=== PATIENT | male | born 1980 | race American Indian/Alaskan Native ===

== ENCOUNTER 2019-01-05 15:14 | Inpatient (IN) | payer SELFPAY ==
--- NOTE | 2019-01-05 15:27 | Event Note ---
ED Screening Note Date of service: 01/05/19 Time: 15:25 ED Screening Note: This is a 38 y.o. M. that presents to the ER with weakness x 2 weeks. This initial assessment/diagnostic orders/clinical plan/treatment(s) is/are subject to change based on patients health status, clinical progression and re- assessment by fellow clinical providers in the ED. Further treatment and workup at subsequent clinical providers discretion. Patient/guardian urged not to elope from the ED as their condition may be serious if not clinically assessed and managed. Initial orders include: Labs Main ED
[2019-01-05 15:55] LABS: Basophils # (Auto) 0.1 K/mm3 (0.0-0.1); Basophils % (Auto) 0.6 % (0.0-1.8); Eosinophils # (Auto) 0.3 K/mm3 (0.0-0.4); Eosinophils % (Auto) 3.5 % (0.0-4.3); Hematocrit 46.1 % (35.5-45.6); Hemoglobin 15.5 gm/dl (11.8-15.2); Lymphocytes # (Auto) 2.4 K/mm3 (1.2-5.4); Lymphocytes % (Auto) 24.2 % (13.4-35.0); Mean Corpuscular HGB Conc 34 % (32-34); Mean Corpuscular Volume 86 fl (84-94); Monocytes # (Auto) 0.9 K/mm3 (0.0-0.8); Monocytes % (Auto) 9.4 % (0.0-7.3); Platelet Count 229 K/mm3 (140-440); Red Blood Count 5.39 M/mm3 (3.65-5.03); Red Cell Distribution Width 12.6 % (13.2-15.2)
[2019-01-05 16:13] LABS: Bilirubin,Urine NEG (Negative); Blood,Urine NEG (Negative); Color,Urine Colorless (Yellow); Protein,Urine <15 mg/dL mg/dL (Negative); Urobilinogen,Urine < 2.0 mg/dL (<2.0); WBC,Urine < 1.0 /HPF (0.0-6.0)
[2019-01-05 16:20] LABS: BUN/Creatinine Ratio 14; Blood Urea Nitrogen 22 mg/dL (9-20); Calcium 9.3 mg/dL (8.4-10.2); Hemolysis Index 51
[2019-01-05] MEDS ORDERED: NACL 0.9% 1000 ML 1,000 ML IV ONE (16:46)
--- NOTE | 2019-01-05 16:52 | Emergency Department Report ---
HPI - General Chief Complaint: Weakness Time Seen by Provider: 01/05/19 15:25 - HPI HPI: Room 4 The patient is a 38-year-old male presenting with chief complaint of polydipsia and polyuria. The patient states her past 2 weeks he's had a very dry mouth and fatigue. Patient admits to polydipsia and polyuria. Patient admits occasional nausea and vomiting Location: [See above] Duration: [See above] Quality: [See above] Severity: [See above] Modifying factors: [see above] Context: [see above] Mode of transportation: [not driving] ED Past Medical Hx - Past Medical History Previous Medical History?: No - Surgical History Past Surgical History?: No - Family History Family history: no significant - Social History Smoking Status: Current Every Day Smoker (1/2 pack per day) Substance Use Type: Marijuana ED Review of Systems ROS: Stated complaint: FATIGUE/DRY MOUTH Other details as noted in HPI Constitutional: malaise Eyes: denies: eye pain ENT: denies: throat pain Respiratory: no symptoms reported Cardiovascular: denies: chest pain Endocrine: increased thirst, increased urine Gastrointestinal: nausea, vomiting Genitourinary: denies: dysuria Musculoskeletal: denies: back pain Neurological: denies: headache Physical Exam - Physical Exam Vital Signs: Vital Signs 01/05/19 15:25 Temperature 98.1 F Pulse Rate 109 H Respiratory 20 Rate Blood Pressure 147/94 O2 Sat by Pulse 95 Oximetry Physical Exam: GENERAL: The patient is well-developed well-nourished male lying on stretcher not appearing to be in acute distress. [] HEENT: Normocephalic. Atraumatic. Extraocular motions are intact. NECK: Supple. No meningitic signs are noted. There is no adenopathy noted. CHEST/LUNGS: Clear to auscultation. There is no respiratory distress noted. HEART/CARDIOVASCULAR: Regular. There is no tachycardia. There is no gallop rub or murmur. ABDOMEN: Abdomen is soft, nontender. Patient has normal bowel sounds. There is no abdominal distention. SKIN: There is no rash. There is no edema. There is no diaphoresis. NEURO: The patient is awake, alert, and oriented. The patient is cooperative. The patient has normal speech MUSCULOSKELETAL: There is no evidence of acute injury. ED Course Vital Signs 01/05/19 15:25 Temperature 98.1 F Pulse Rate 109 H Respiratory 20 Rate Blood Pressure 147/94 O2 Sat by Pulse 95 Oximetry ED Medical Decision Making - Lab Data Result diagrams: 01/05/19 15:35 01/05/19 15:35 Laboratory Tests 01/05/19 01/05/19 01/05/19 15:30 15:32 15:35 WBC 9.8 RBC 5.39 H Hgb 15.5 H Hct 46.1 H MCV 86 MCH 29 MCHC 34 RDW 12.6 L Plt Count 229 Lymph % (Auto) 24.2 [place] % (Auto) 9.4 H Eos % (Auto) 3.5 Baso % (Auto) 0.6 Lymph # 2.4 [place] # 0.9 H Eos # 0.3 Baso # 0.1 Seg Neutrophils % 62.3 Seg Neutrophils # 6.1 VBG pH Sodium Potassium Chloride Carbon Dioxide Anion Gap BUN Creatinine Estimated GFR BUN/Creatinine Ratio Glucose POC Glucose > 500 H Calcium Magnesium Total Bilirubin AST ALT Alkaline Phosphatase Total Protein Albumin Albumin/Globulin Ratio Urine Color Colorless Urine Turbidity Clear Urine pH 6.0 Ur Specific [place] 1.029 Urine Protein <15 mg/dl Urine Glucose (UA) >=500 Urine Ketones 20 Urine Blood Neg Urine Nitrite Neg Urine Bilirubin Neg Urine Urobilinogen < 2.0 Ur Leukocyte Esterase Neg Urine WBC (Auto) < 1.0 Urine RBC (Auto) 1.0 01/05/19 01/05/19 01/05/19 15:35 15:35 17:00 WBC RBC Hgb Hct MCV MCH MCHC RDW Plt Count Lymph % (Auto) [place] % (Auto) Eos % (Auto) Baso % (Auto) Lymph # [place] # Eos # Baso # Seg Neutrophils % Seg Neutrophils # VBG pH 7.367 Sodium 122 L Potassium 5.0 Chloride 83.3 L Carbon Dioxide 22 Anion Gap 22 BUN 22 H Creatinine 1.6 H Estimated GFR 58 BUN/Creatinine Ratio 14 Glucose 777 H* POC Glucose Calcium 9.3 Magnesium 2.00 Total Bilirubin 0.30 AST 12 ALT < 5 L Alkaline Phosphatase 112 Total Protein 8.6 H Albumin 4.0 Albumin/Globulin Ratio 0.9 Urine Color Urine Turbidity Urine pH Ur Specific [place] Urine Protein Urine Glucose (UA) Urine Ketones Urine Blood Urine Nitrite Urine Bilirubin Urine Urobilinogen Ur Leukocyte Esterase Urine WBC (Auto) Urine RBC (Auto) - Differential Diagnosis new-onset diabetes, DKA Critical care attestation.: If time is entered above; I have spent that time in minutes in the direct care of this critically ill patient, excluding procedure time. ED Disposition Clinical Impression: Diabetic hyperosmolar non-ketotic state Disposition: OP ADMIT IP TO THIS HOSP Is pt being admited?: Yes Does the pt Need Aspirin: No Condition: Fair Instructions: Diabetes Mellitus Type 2 in Adults (ED) Referrals: [facility] [place] [facility] [Primary Care Provider] - 3-5 Days Time of Disposition: 17:22 (hospitalist notified (Dr Day))
[2019-01-05 16:55] LABS: Alanine Aminotransferase < 5 units/L (7-56)
[2019-01-05] MEDS ORDERED: D50W (25GM) Syringe IV PRN (17:13)
[2019-01-05] MEDS ORDERED: NACL 0.45% IV SCH (18:00)
[2019-01-05] MEDS ORDERED: HumuLIN R 100 UNITS in NACL 0.9% 99 ML IV SCH (18:00)
[2019-01-05] MEDS ORDERED: NACL 0.45% 1000 ML 1,000 ML IV ONE ×3 (18:19→20:46)
[2019-01-05 18:34] LABS: BUN/Creatinine Ratio 18; Blood Urea Nitrogen 22 mg/dL (9-20); Hemolysis Index 39
[2019-01-05] MEDS ORDERED: SODIUM CHLORIDE FLUSH SYRINGE 10 ML IV PRN (19:15)
--- NOTE | 2019-01-05 19:17 | History and Physical Report ---
History of Present Illness Chief complaint: I feel sick, im thirsty History of present illness: 38 YO Male with Obesity, Nicotine Dependence presents to ED for evaluation. Pt states that he has experienced generalized fatigue, dry mouth, polydipsia, polyuria, nausea and multiple episodes of vomiting over the past 2 weeks with increased frequency of the aforementioned symptoms over the past 3 days. Pt transported to [facility] via private vehicle. Pt seen and evaluated in ED and found to have new onset DM with Hyperglycemic Hyperosmolar State with serum glucose above 700 complicated by acidosis. Pt denies fever, chills, CP, Palpitations, Trauma, BRBPR, Productive cough, skin rash, ingestion of food/water from new/different sources. Pt admitted to [facility] and initiated on Insulin drip as well as IVF resuscitation with improvement in symptoms. No prior admission for review. No medication listed for reconciliation at time of admission. Past History Past Medical History: other (Obesity) Past Surgical History: No surgical history, Other (reviewed) Social history: , smoking Family history: diabetes, hypertension Medications and Allergies Allergies Allergy/AdvReac Type Severity Reaction Status Date / Time No Known Allergies Allergy Unverified 01/05/19 15:24 Active Meds: Active Medications Dextrose (D50w (25gm) Syringe) 0 ml IV ONCE PRN PRN Reason: Hypoglycemia Insulin Human Regular 100 (units/ Sodium Chloride) 100 mls @ 10 mls/hr IV TITR ITZ; Protocol Sodium Chloride (Nacl 0.45%) 4,000 mls @ 999 mls/hr IV DIRECT ITZ Last Admin: 01/05/19 18:22 Dose: 999 mls/hr Documented by: Sodium Chloride (Sodium Chloride Flush Syringe 10 Ml) 10 ml IV BID ITZ Sodium Chloride (Sodium Chloride Flush Syringe 10 Ml) 10 ml IV PRN PRN PRN Reason: LINE FLUSH Review of Systems Constitutional: no weight loss, no weight gain, no fever, no chills Ears, nose, mouth and throat: no ear pain, no ear discharge, no tinnitis, no decreased hearing, no nose pain, no nasal discharge Cardiovascular: no chest pain, no orthopnea, no palpitations, no rapid/irregular heart beat, no lightheadedness Respiratory: no cough, no cough with sputum, no excessive sputum, no hemoptysis, no shortness of breath Gastrointestinal: nausea, vomiting, no abdominal pain, no change in bowel habits, no hematemesis, no coffee ground emesis Genitourinary Male: no dysuria, no hematuria, no flank pain, no discharge, no urinary frequency, no urinary hesitancy, no nocturia, no incontinence Rectal: no pain, no incontinence, no bleeding Musculoskeletal: no neck stiffness, no neck pain, no shooting arm pain, no leg numbness/tingling, no redness of joints Integumentary: no rash, no pruritis, no redness, no sores, no wounds Neurological: no transient paralysis, no paralysis, no weakness, no parathesias, no numbness, no tingling Psychiatric: no anxiety, no memory loss, no change in sleep habits, no sleep disturbances, no insomnia, no hypersomnia, no change in appetite Endocrine: polyphagia, excessive thirst, polydipsia, polyuria, no cold intolerance, no heat intolerance, no excessive sweating, no flushing Hematologic/Lymphatic: no easy bruising, no easy bleeding, no lymphadenopathy, no lymphedema Allergic/Immunologic: no urticaria, no persistent infections, no anaphylaxis Exam - Constitutional Vitals: Temp Pulse Resp BP Pulse Ox 98.6 F 90 17 152/82 96 01/05/19 17:14 01/05/19 18:31 01/05/19 18:31 01/05/19 18:31 01/05/19 17:02 General appearance: Present: mild distress - EENT Eyes: Present: PERRL ENT: hearing intact, clear oral mucosa - Neck Neck: Present: supple, normal ROM - Respiratory Respiratory effort: normal Respiratory: bilateral: CTA - Cardiovascular Heart Sounds: Present: S1 & S2. Absent: rub, click - Extremities Extremities: pulses symmetrical, No edema Peripheral Pulses: within normal limits - Abdominal General gastrointestinal: Present: soft, non-tender, non-distended, normal bowel sounds Male genitourinary: Present: normal - Integumentary Integumentary: Present: clear, warm, dry - Musculoskeletal Musculoskeletal: gait normal, strength equal bilaterally - Psychiatric Psychiatric: appropriate mood/affect, intact judgment & insight - Neurologic Neurologic: CNII-XII intact, moves all extremities Results - Labs CBC & Chem 7: 01/05/19 15:35 01/05/19 19:22 Labs: Abnormal lab results 01/05/19 01/05/19 01/05/19 Range/Units 15:30 15:35 15:35 RBC 5.39 H (3.65-5.03) M/mm3 Hgb 15.5 H (11.8-15.2) gm/dl Hct 46.1 H (35.5-45.6) % RDW 12.6 L (13.2-15.2) % [place] % (Auto) 9.4 H (0.0-7.3) % [place] # 0.9 H (0.0-0.8) K/mm3 Sodium 122 L (137-145) mmol/L Chloride 83.3 L (98-107) mmol/L Carbon Dioxide (22-30) mmol/L BUN 22 H (9-20) mg/dL Creatinine 1.6 H (0.8-1.5) mg/dL Glucose 777 H* (75-100) mg/dL POC Glucose > 500 H (70-105) ALT < 5 L (7-56) units/L Total Protein 8.6 H (6.3-8.2) g/dL 01/05/19 01/05/19 Range/Units 18:06 18:57 RBC (3.65-5.03) M/mm3 Hgb (11.8-15.2) gm/dl Hct (35.5-45.6) % RDW (13.2-15.2) % [place] % (Auto) (0.0-7.3) % [place] # (0.0-0.8) K/mm3 Sodium 128 L (137-145) mmol/L Chloride 90.4 L (98-107) mmol/L Carbon Dioxide 21 L (22-30) mmol/L BUN 22 H (9-20) mg/dL Creatinine (0.8-1.5) mg/dL Glucose 555 H* (75-100) mg/dL POC Glucose 416 H (70-105) ALT (7-56) units/L Total Protein (6.3-8.2) g/dL Assessment and Plan - Patient Problems (1) Diabetic hyperosmolar non-ketotic state Current Visit: Yes Status: Acute Plan to address problem: Insulin drip, IVF resuscitation therapy, monitor uop q shift, serial bmp, monitor anion gap, diabetes education, HGB a1c, (2) Acidosis Current Visit: Yes Status: Acute Plan to address problem: IVF resuscitation therapy, repeat bmp (3) MARIA A (acute kidney injury) Current Visit: Yes Status: Acute Plan to address problem: IVF resuscitation therapy, monitor uop q shift, monitor serum creatnine (4) DVT prophylaxis Current Visit: Yes Status: Acute Plan to address problem: SCD to BLE while in bed.
[2019-01-05 20:00] LABS: BUN/Creatinine Ratio 19; Blood Urea Nitrogen 21 mg/dL (9-20); Calcium 9.1 mg/dL (8.4-10.2); Hemolysis Index 33
[2019-01-05] MEDS ORDERED: TYLENOL PO PRN (21:00)
[2019-01-05] MEDS ORDERED: TYLENOL ONE (21:07)
[2019-01-05] MEDS ORDERED: DILAUDID IV ONE (21:48)
[2019-01-05] MEDS ORDERED: ZOFRAN ONE (21:51)
[2019-01-05] MEDS ORDERED: DILAUDID ONE (21:51)
[2019-01-05 21:59] LABS: BUN/Creatinine Ratio 16; Blood Urea Nitrogen 18 mg/dL (9-20); Calcium 8.9 mg/dL (8.4-10.2); Hemolysis Index 17
[2019-01-05] MEDS ORDERED: ZOFRAN IV ONE (22:01)
[2019-01-05] MEDS: SODIUM CHLORIDE FLUSH SYRINGE 10 ML IV SCH (22:18)
[2019-01-05] MEDS ORDERED: D5NS 0.2% 0 ML IV ONE (22:51)
[2019-01-05] MEDS ORDERED: D5W/0.45% NACL/KCL 20 MEQ 20 MEQ/1,000 ML BAG IV SCH (23:00)
--- NOTE | 2019-01-05 23:07 | Cat Scan Report ---
CT of the neck with contrast INDICATION: rt neck swelling with pain. TECHNIQUE: Axial, coronal and sagittal CT imaging was performed through the neck after injection of 100 cc Omnip aque [address] scans at this location are performed using CT dose reduction for LOREN wilde of automated exposure control. COMPARISON: None available. FINDINGS: The aerodigestive tract is patent and normal in caliber. The parapharyngeal spaces are maintained and appear symmetric. No mass, lymphadenopathy or fluid collection is seen. The thyroid, submandibular and parotid glands a re unremarkable. Mild to moderate mucosal thickening is noted inferiorly along the maxillary sinuses with a probable r etention cyst/polyp noted in the right maxillary sinus measuring 1.8 cm. The remaining visualized sin uses are clear. The mastoid air cells are patent. The visualized orbital structures and included portions of the brain are unremarkable. No acute osseous abnormality is seen. No acute abnormality of the included mediastinal structures is seen. There is no significant abnormal ity of the visualized portions of the lungs. IMPRESSION: No acute abnormality of the neck. Signer Name: Shaun Jarvis MD Signed: 01/05/2019 11:02 PM Workstation Name: [id number]
[2019-01-06 00:21] LABS: BUN/Creatinine Ratio 20; Blood Urea Nitrogen 16 mg/dL (9-20); Calcium 8.2 mg/dL (8.4-10.2); Hemolysis Index 6
--- NOTE | 2019-01-06 00:21 | Event Note ---
called by nurse to see patient for swelling of right side of neck Patient states he had this swelling for 3 days PE: swelling from right side of the angle of jaw extending to the midline CT scan of the neck was ordered and reviewed He has a cavity of the right lower molar start anitibiotic, monitor swelling The high probability of a clinically significant, sudden or life threatening deterioration of the [CV, GI, respiratory] system(s) required my full and direct attention, intervention and personal management. The aggregate critical care time was [35 ] minutes. This time is in addition to time spent performing reported procedures but includes the following: x] Data Review and interpretation [x] Patient assessment and monitoring of vital signs [x] Documentation [x] Medication orders and management
[2019-01-06] MEDS: AUGMENTIN 875 MG PO SCH ×3 (01:01→21:35)
[2019-01-06 01:47] LABS: BUN/Creatinine Ratio 18; Blood Urea Nitrogen 14 mg/dL (9-20); Calcium 8.6 mg/dL (8.4-10.2); Hemolysis Index 103
[2019-01-06] MEDS ORDERED: D50W (25GM) Syringe IV PRN (09:21)
[2019-01-06] MEDS: SODIUM CHLORIDE FLUSH SYRINGE 10 ML IV SCH ×2 (10:39→21:35)
[2019-01-06 11:26] LABS: BUN/Creatinine Ratio 12; Blood Urea Nitrogen 11 mg/dL (9-20); Calcium 8.2 mg/dL (8.4-10.2); Hemolysis Index 14
[2019-01-06] MEDS ORDERED: HumuLIN R ONE (11:45)
[2019-01-06] MEDS ORDERED: HumuLIN R SUB-Q SCH (12:00)
--- NOTE | 2019-01-06 15:37 | Progress Note ---
Assessment and Plan (1) Diabetic hyperosmolar non-ketotic state Current Visit: Yes Status: Acute Plan to address problem: Improved New onset diabetes Will start him on oral hypoglycemics and f/u as out patient (2) Acidosis Current Visit: Yes Status: Acute Plan to address problem: Improved (3) MARIA A (acute kidney injury) Current Visit: Yes Status: Acute Plan to address problem: Improved 11/0.9 ---bun/Cr (4) DVT prophylaxis Current Visit: Yes Status: Acute Plan to address problem: SCD to BLE while in bed. Subjective Date of service: 01/06/19 Principal diagnosis: Severe weakness and fatigue Interval history: 38 YO Male with Obesity, Nicotine Dependence presents to ED for evaluation. Pt states that he has experienced generalized fatigue, dry mouth, polydipsia, polyuria, nausea and multiple episodes of vomiting over the past 2 weeks with increased frequency of the aforementioned symptoms over the past 3 days. Pt transported to [facility] via private vehicle. Pt seen and evaluated in ED and found to have new onset DM with Hyperglycemic Hyperosmolar State with serum glucose above 700 complicated by acidosis. Pt denies fever, chills, CP, Palpitations, Trauma, BRBPR, Productive cough, skin rash, ingestion of food/water from new/different sources. Pt admitted to IMCU and later Med surg. Doing well now Objective - Constitutional Vitals: Vital Signs - 12hr 01/06/19 01/06/19 01/06/19 04:00 05:00 06:16 Temperature Pulse Rate 63 75 Respiratory 12 12 Rate Blood Pressure 126/84 129/81 129/81 Blood Pressure [Left] O2 Sat by Pulse 98 98 97 Oximetry 01/06/19 01/06/19 07:00 13:23 Temperature 98.3 F Pulse Rate 64 72 Respiratory 11 L 16 Rate Blood Pressure 126/80 Blood Pressure 126/66 [Left] O2 Sat by Pulse 97 99 Oximetry General appearance: Present: no acute distress, well-nourished - EENT Eyes: PERRL, EOM intact ENT: hearing intact, clear oral mucosa Ears: bilateral: normal - Neck Neck: supple, normal ROM - Respiratory Respiratory effort: normal Respiratory: bilateral: CTA - Breasts Breasts: normal - Cardiovascular Heart rate: 78 Rhythm: regular Heart Sounds: Present: S1 & S2. Absent: gallop, rub Extremities: no ischemia, pulses intact, No edema, normal color, Full ROM - Gastrointestinal General gastrointestinal: Present: soft, non-tender, non-distended, normal bowel sounds Rectal Exam: deferred - Genitourinary Male genitourinary: normal - Integumentary Integumentary: clear, warm, dry - Musculoskeletal Musculoskeletal: 1, strength equal bilaterally - Neurologic Neurologic: moves all extremities - Psychiatric Psychiatric: memory intact, appropriate mood/affect, intact judgment & insight - Labs CBC & Chem 7: 01/05/19 15:35 01/06/19 21:15 Labs: Abnormal lab results 01/05/19 01/05/19 01/05/19 Range/Units 15:30 15:35 15:35 RBC 5.39 H (3.65-5.03) M/mm3 Hgb 15.5 H (11.8-15.2) gm/dl Hct 46.1 H (35.5-45.6) % RDW 12.6 L (13.2-15.2) % [place] % (Auto) 9.4 H (0.0-7.3) % [place] # 0.9 H (0.0-0.8) K/mm3 Sodium 122 L (137-145) mmol/L Potassium (3.6-5.0) mmol/L Chloride 83.3 L (98-107) mmol/L Carbon Dioxide (22-30) mmol/L BUN 22 H (9-20) mg/dL Creatinine 1.6 H (0.8-1.5) mg/dL Glucose 777 H* (75-100) mg/dL POC Glucose > 500 H (70-105) Hemoglobin A1c (4-6) % Calcium (8.4-10.2) mg/dL ALT < 5 L (7-56) units/L Total Protein 8.6 H (6.3-8.2) g/dL 01/05/19 01/05/19 01/05/19 Range/Units 15:35 18:06 18:57 RBC (3.65-5.03) M/mm3 Hgb (11.8-15.2) gm/dl Hct (35.5-45.6) % RDW (13.2-15.2) % [place] % (Auto) (0.0-7.3) % [place] # (0.0-0.8) K/mm3 Sodium 128 L (137-145) mmol/L Potassium (3.6-5.0) mmol/L Chloride 90.4 L (98-107) mmol/L Carbon Dioxide 21 L (22-30) mmol/L BUN 22 H (9-20) mg/dL Creatinine (0.8-1.5) mg/dL Glucose 555 H* (75-100) mg/dL POC Glucose 416 H (70-105) Hemoglobin A1c 12.2 H (4-6) % Calcium (8.4-10.2) mg/dL ALT (7-56) units/L Total Protein (6.3-8.2) g/dL 01/05/19 01/05/19 01/05/19 Range/Units 19:22 20:08 20:59 RBC (3.65-5.03) M/mm3 Hgb (11.8-15.2) gm/dl Hct (35.5-45.6) % RDW (13.2-15.2) % [place] % (Auto) (0.0-7.3) % [place] # (0.0-0.8) K/mm3 Sodium 130 L (137-145) mmol/L Potassium (3.6-5.0) mmol/L Chloride 92.1 L (98-107) mmol/L Carbon Dioxide 21 L (22-30) mmol/L BUN 21 H (9-20) mg/dL Creatinine (0.8-1.5) mg/dL Glucose 462 H (75-100) mg/dL POC Glucose 370 H 334 H (70-105) Hemoglobin A1c (4-6) % Calcium (8.4-10.2) mg/dL ALT (7-56) units/L Total Protein (6.3-8.2) g/dL 01/05/19 01/05/19 01/05/19 Range/Units 21:26 22:19 23:08 RBC (3.65-5.03) M/mm3 Hgb (11.8-15.2) gm/dl Hct (35.5-45.6) % RDW (13.2-15.2) % [place] % (Auto) (0.0-7.3) % [place] # (0.0-0.8) K/mm3 Sodium 131 L (137-145) mmol/L Potassium 3.3 L D (3.6-5.0) mmol/L Chloride 91.8 L (98-107) mmol/L Carbon Dioxide 21 L (22-30) mmol/L BUN (9-20) mg/dL Creatinine (0.8-1.5) mg/dL Glucose 299 H (75-100) mg/dL POC Glucose 230 H 260 H (70-105) Hemoglobin A1c (4-6) % Calcium (8.4-10.2) mg/dL ALT (7-56) units/L Total Protein (6.3-8.2) g/dL 01/05/19 01/06/19 01/06/19 Range/Units 23:30 00:08 01:03 RBC (3.65-5.03) M/mm3 Hgb (11.8-15.2) gm/dl Hct (35.5-45.6) % RDW (13.2-15.2) % [place] % (Auto) (0.0-7.3) % [place] # (0.0-0.8) K/mm3 Sodium 132 L (137-145) mmol/L Potassium 3.1 L (3.6-5.0) mmol/L Chloride 94.3 L (98-107) mmol/L Carbon Dioxide (22-30) mmol/L BUN (9-20) mg/dL Creatinine (0.8-1.5) mg/dL Glucose 272 H (75-100) mg/dL POC Glucose 252 H 250 H (70-105) Hemoglobin A1c (4-6) % Calcium 8.2 L (8.4-10.2) mg/dL ALT (7-56) units/L Total Protein (6.3-8.2) g/dL 01/06/19 01/06/19 01/06/19 Range/Units 01:19 02:05 03:06 RBC (3.65-5.03) M/mm3 Hgb (11.8-15.2) gm/dl Hct (35.5-45.6) % RDW (13.2-15.2) % [place] % (Auto) (0.0-7.3) % [place] # (0.0-0.8) K/mm3 Sodium 134 L (137-145) mmol/L Potassium (3.6-5.0) mmol/L Chloride 94.5 L (98-107) mmol/L Carbon Dioxide (22-30) mmol/L BUN (9-20) mg/dL Creatinine (0.8-1.5) mg/dL Glucose 247 H (75-100) mg/dL POC Glucose 225 H 212 H (70-105) Hemoglobin A1c (4-6) % Calcium (8.4-10.2) mg/dL ALT (7-56) units/L Total Protein (6.3-8.2) g/dL 01/06/19 01/06/19 01/06/19 Range/Units 04:14 05:23 06:04 RBC (3.65-5.03) M/mm3 Hgb (11.8-15.2) gm/dl Hct (35.5-45.6) % RDW (13.2-15.2) % [place] % (Auto) (0.0-7.3) % [place] # (0.0-0.8) K/mm3 Sodium (137-145) mmol/L Potassium (3.6-5.0) mmol/L Chloride (98-107) mmol/L Carbon Dioxide (22-30) mmol/L BUN (9-20) mg/dL Creatinine (0.8-1.5) mg/dL Glucose (75-100) mg/dL POC Glucose 187 H 172 H 188 H (70-105) Hemoglobin A1c (4-6) % Calcium (8.4-10.2) mg/dL ALT (7-56) units/L Total Protein (6.3-8.2) g/dL 01/06/19 01/06/19 01/06/19 Range/Units 07:09 10:12 11:43 RBC (3.65-5.03) M/mm3 Hgb (11.8-15.2) gm/dl Hct (35.5-45.6) % RDW (13.2-15.2) % [place] % (Auto) (0.0-7.3) % [place] # (0.0-0.8) K/mm3 Sodium 135 L (137-145) mmol/L Potassium (3.6-5.0) mmol/L Chloride 97.6 L (98-107) mmol/L Carbon Dioxide (22-30) mmol/L BUN (9-20) mg/dL Creatinine (0.8-1.5) mg/dL Glucose 285 H (75-100) mg/dL POC Glucose 154 H 265 H (70-105) Hemoglobin A1c (4-6) % Calcium 8.2 L (8.4-10.2) mg/dL ALT (7-56) units/L Total Protein (6.3-8.2) g/dL
[2019-01-06] MEDS: HumuLIN R SUB-Q SCH ×2 (18:55→21:39)
[2019-01-06] MEDS: AMARYL PO SCH (18:55)
[2019-01-06 22:13] LABS: BUN/Creatinine Ratio 16; Blood Urea Nitrogen 13 mg/dL (9-20); Calcium 8.7 mg/dL (8.4-10.2); Hemolysis Index 37
[2019-01-07 07:13] VITALS: BP 116/66
[2019-01-07] MEDS: AMARYL PO SCH (08:28)
[2019-01-07] MEDS: HumuLIN R SUB-Q SCH ×2 (09:06→13:58)
[2019-01-07] MEDS: AUGMENTIN 875 MG PO SCH (10:34)
[2019-01-07] MEDS: SODIUM CHLORIDE FLUSH SYRINGE 10 ML IV SCH (10:35)
--- NOTE | 2019-01-07 13:23 | Discharge Summary ---
Providers - Providers Date of Admission: 01/05/19 19:15 Date of discharge: 01/07/19 Attending physician: NEGRA MEDEL 01/05/19 19:15 Consult to Dietitian/Nutrition [CONS] Routine Physician Instructions: Reason For Exam: Reason for Consult: Diet education [facility] Condition: Fair Hospital course: (1) Diabetic hyperosmolar non-ketotic state Current Visit: Yes Status: Acute Plan to address problem: Improved New onset diabetes Will start him on oral hypoglycemics--Glimpride /Metformin and f/u as out patient If unctrolled patient advised to start insulin 70/30 bid (2) Acidosis Current Visit: Yes Status: Acute Plan to address problem: Improved (3) MARIA A (acute kidney injury) Current Visit: Yes Status: Acute Plan to address problem: Improved 11/0.9 ---bun/Cr Disposition: DC-01 TO HOME OR SELFCARE Core Measure Documentation - Palliative Care Palliative Care/ Comfort Measures: Not Applicable - Core Measures Any of the following diagnoses?: none Exam - Constitutional Vitals: Temp Pulse Resp BP Pulse Ox 98.2 F 74 20 116/66 99 01/07/19 06:56 01/07/19 06:56 01/07/19 06:56 01/07/19 06:56 01/07/19 06:56 General appearance: Present: no acute distress, well-nourished - EENT Eyes: Present: PERRL ENT: hearing intact, clear oral mucosa - Neck Neck: Present: supple, normal ROM - Respiratory Respiratory effort: normal Respiratory: bilateral: CTA - Cardiovascular Heart rate: 88 Rhythm: regular Heart Sounds: Present: S1 & S2. Absent: rub, click - Extremities Extremities: no ischemia, pulses intact, pulses symmetrical, No edema Peripheral Pulses: within normal limits - Abdominal General gastrointestinal: Present: soft, non-tender, non-distended, normal bowel sounds Male genitourinary: Present: normal - Rectal Rectal Exam: deferred - Integumentary Integumentary: Present: clear, warm, dry - Musculoskeletal Musculoskeletal: gait normal, strength equal bilaterally - Psychiatric Psychiatric: appropriate mood/affect, intact judgment & insight - Neurologic Neurologic: CNII-XII intact, moves all extremities - Allied Health Allied health notes reviewed: nursing, case management Plan Activity: no restrictions Diet: diabetic Follow up with: NEGRA MEDEL MD [Staff Physician] - 7 Days
== END 2019-01-07 14:30 | disposition home or self-care (01) | DRG 682 ==
LOC: ED 15:14 → IMCU 19:15 → 3A 01-06 12:38
PROVIDERS: ADMIT Internal Medicine; ATTEND Internal Medicine
DX: N17.9 Acute kidney failure, unspecified (principal); E11.00 Type 2 diabetes mellitus with hyperosmolarity without nonketotic hyperglycemic-hyperosmolar coma (NKHHC); E87.2 Acidosis; E66.9 Obesity, unspecified; F12.90 Cannabis use, unspecified, uncomplicated; F17.200 Nicotine dependence, unspecified, uncomplicated; Z82.49 Family history of ischemic heart disease and other diseases of the circulatory system; Z68.35 Body mass index [BMI] 35.0-35.9, adult; Z83.3 Family history of diabetes mellitus
CPT/HCPCS: 36415; 70491; 80048; 80053; 81001; 82805; 82962; 83036; 83735; 84100; 85025; 96360; 96361; G0378; J1170; J1815; J2405; J7030; Q9967